=== PATIENT | male | born 1990 | race Two or more races ===

== ENCOUNTER 2018-10-10 03:00 | Emergency (ER) | payer SELFPAY ==
[2018-10-10 03:04] VITALS: PULSE 95; TEMP 97.8
--- NOTE | 2018-10-10 03:18 | ED PDOC ---
HPI: Psych/Substance Abuse Time Seen by Provider: 10/10/18 03:08 Chief Complaint (Nursing): Alcohol Ingestion Chief Complaint (Provider): Alcohol Ingestion History Per: EMS History/Exam Limitations: no limitations Additional Complaint(s): 27 years old male brought in by EMS for public intoxication. Patient offers no complaints. PMD: None provided Past Medical History Reviewed: Historical Data, Nursing Documentation, Vital Signs Vital Signs: Last Vital Signs Temp 97.8 F 10/10/18 03:02 Pulse 95 H 10/10/18 03:02 Resp 19 10/10/18 03:02 BP 119/71 10/10/18 03:02 Pulse Ox 85 L 10/10/18 03:02 Primary Care Provider: FAMILY PROVIDER,NO - Medical History PMH: No Chronic Diseases - Surgical History Other surgeries: Unknwon - Family History Family History: States: Unknown Family Hx - Social History Alcohol: Social - Allergies Allergies/Adverse Reactions: Allergies Allergy/AdvReac Type Severity Reaction Status Date / Time No Known Allergies Allergy Verified 10/10/18 03:04 Review of Systems ROS Statement: Except As Marked, All Systems Reviewed And Found Negative Cardiovascular: Negative for: Chest Pain Respiratory: Negative for: Shortness of Breath Neurological: Negative for: Headache Physical Exam - Reviewed Nursing Documentation Reviewed: Yes Vital Signs Reviewed: Yes - Physical Exam Appears: Positive for: No Acute Distress Head Exam: Positive for: ATRAUMATIC, NORMOCEPHALIC Skin: Positive for: Normal Color, Warm, Dry Eye Exam: Positive for: Normal appearance, EOMI, PERRL ENT: Positive for: Normal ENT Inspection Neck: Positive for: Normal, Painless ROM, Supple Cardiovascular/Chest: Positive for: Regular Rate, Rhythm. Negative for: Murmur Respiratory: Positive for: Normal Breath Sounds. Negative for: Respiratory Distress Gastrointestinal/Abdominal: Positive for: Normal Exam, Soft. Negative for: Tenderness Back: Positive for: Normal Inspection. Negative for: L CVA Tenderness, R CVA Tenderness Extremity: Positive for: Normal ROM. Negative for: Pedal Edema, Deformity Neurological/Psych: Positive for: Other (Slurred speech) - ECG O2 Sat by Pulse Oximetry: 85 (RA) Pulse Ox Interpretation: Abnormal Medical Decision Making Medical Decision Making: Time: 030 Initial impression: 27 years old male brought in for public intoxication Initial plan: --Alcohol serum 0325 Patient is alert, awake and oriented x3 with normal steady gait, stable for discharge. Scribe Attestation: Documented by Fátima Lebron, acting as a scribe for Sunny Crowley MD. Provider Scribe Attestation: All medical record entries made by the Scribe were at my direction and personally dictated by me. I have reviewed the chart and agree that the record accurately reflects my personal performance of the history, physical exam, medical decision making, and the department course for this patient. I have also personally directed, reviewed, and agree with the discharge instructions and disposition. Disposition - Clinical Impression Clinical Impression: Alcohol use - Patient ED Disposition Is Patient to be Admitted: No - Disposition Disposition: Routine/Home Disposition Time: 03:25 Condition: STABLE Instructions: Alcohol Use - When Is Drinking a Problem? Forms: [employer] (Kiswahili)
[2018-10-10 04:06] VITALS: BP 126/76; RESP 18; O2SAT 96
== END 2018-10-10 03:30 | disposition home or self-care (01) ==
LOC: H.ER 03:00
DX: F10.10 Alcohol abuse, uncomplicated (principal)